=== PATIENT | female | born 1980 | race Two or more races ===

== ENCOUNTER 2018-08-22 16:42 | Emergency (ER) | payer OTHER ==
[2018-08-22] MEDS ORDERED: ACETAMINOPHEN 325 MG TABLET PO ONE (16:59)
[2018-08-22] MEDS ORDERED: KETOROLAC TROMETHAMINE 60 MG/2 ML SDV IM ONE (18:03)
--- NOTE | 2018-08-22 18:04 | ER Document Report ---
ED Medical Screen (RME) - General Chief Complaint: Flu Symptoms Stated Complaint: FLU LIKE SYMPTOMS Time Seen by Provider: 08/22/18 18:00 Primary Care Provider: EDDA SANTIAGO NP [Primary Care Provider] - Follow up as needed Notes: Chief complaint: Body aches and pain History of complain:( obtained from----patient) 38 years old female presents today with general body aches and pain feverish, fever, sore throat. Denies any nausea vomiting abdominal pain. Denies any cough shortness of breath. PHYSICAL EXAMINATION: GENERAL: Well-appearing, well-nourished and in mild to moderate acute distress. Morbid obesity HEAD: Atraumatic, normocephalic. EYES: Pupils equal round and reactive to light, extraocular movements intact, conjunctiva are normal. ENT: Nares patent, oropharynx erythema noted bilaterally no exudates. . Moist mucous membranes. NECK: Normal range of motion, supple without lymphadenopathy LUNGS: Breath sounds clear to auscultation bilaterally and equal. No wheezes rales or rhonchi. HEART: Regular rate and rhythm without murmurs ABDOMEN: Soft, nontender, nondistended abdomen. No guarding, no rebound. No masses appreciated. Examination of genitals-deferred Musculoskeletal: Normal range of motion, no pitting or edema. No cyanosis. NEUROLOGICAL: Cranial nerves grossly intact. Normal speech, normal gait. Normal sensory, motor exams PSYCH: Normal mood, normal affect. SKIN: Warm, Dry, normal turgor, no rashes or lesions noted. TRAVEL OUTSIDE OF THE [place] 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
[2018-08-22 19:59] LABS: A TYPE INFLUENZA AG NEGATIVE (NEGATIVE); B INFLUENZA AG NEGATIVE (NEGATIVE)
[2018-08-22] MEDS ORDERED: DEXAMETHASONE SOD PHOS INJ 10 MG/1 ML VIAL IM ONE (20:00)
[2018-08-22] MEDS ORDERED: PENICILLIN G BENZATHINE 1.2 MILLION UNIT/2 ML DISP.SYRIN IM ONE (20:04)
--- NOTE | 2018-08-22 20:08 | ER Document Report ---
ED Flu Like - General Chief Complaint: Flu Symptoms Stated Complaint: FLU LIKE SYMPTOMS Time Seen by Provider: 08/22/18 18:00 Primary Care Provider: EDDA SANTIAGO NP [ALLIED HEALTH PROFESSIONAL] - Follow up as needed Notes: Patient is a 38-year-old female that comes to the emergency department for chief complaint of 3 days of worsening throat pain, she states she started feeling fevers and chills, she states today she started to hurt over her entire body. She denies difficulty breathing, on my evaluation she does not have a headache, she states her main complaint now after medications in triage is just the sore throat. She has had the influenza vaccine. She is currently on her menstrual cycle. She denies any daily medications. TRAVEL OUTSIDE OF THE [place] IN LAST 30 DAYS: No - Related Data Allergies/Adverse Reactions: No Known Allergies Allergy (Unverified 08/22/18 16:43) Past Medical History - General Information source: Patient - Social History Smoking Status: Never Smoker Frequency of alcohol use: None Drug Abuse: None Lives with: Family Family History: Reviewed & Not Pertinent Patient has suicidal ideation: No Patient has homicidal ideation: No Renal/ Medical History: Denies: Hx Peritoneal Dialysis Skin Medical History: Comment Only Hx MRSA - MRSA 08/15 [facility] Psychiatric Medical History: Reports: Hx Anxiety Surgical Hx: Negative - Immunizations Immunizations up to date: Yes Hx Diphtheria, Pertussis, Tetanus Vaccination: Yes Review of Systems - Review of Systems Constitutional: See HPI EENT: See HPI Cardiovascular: No symptoms reported Respiratory: No symptoms reported Gastrointestinal: No symptoms reported Genitourinary: No symptoms reported Female Genitourinary: No symptoms reported Musculoskeletal: See HPI Skin: No symptoms reported Hematologic/Lymphatic: No symptoms reported Neurological/Psychological: See HPI Physical Exam - Vital signs Vitals: Temp Pulse Resp BP Pulse Ox 102.8 F H 133 H 22 H 153/103 H 98 08/22/18 16:46 08/22/18 16:46 08/22/18 16:46 08/22/18 16:46 08/22/18 16:46 - Notes Notes: GENERAL: Alert, nontoxic, anxious HEAD: Normocephalic, atraumatic. EYES: Pupils equal, round, and reactive to light. Extraocular movements intact. ENT: Oral mucosa moist, tongue midline. Erythematous with mild tonsillar hypertrophy, no obvious exudates, no uvular edema or shift, no evidence of peritonsillar abscess. Airway patent. Nares patent, no nasal septal hematoma, TM's intact. NECK: Full range of motion. Supple. Trachea midline. Mild bilateral anterior cervical adenopathy LUNGS: Clear to auscultation bilaterally, no wheezes, rales, or rhonchi. No respiratory distress. HEART: Tachycardic, normal rhythm, no murmur ABDOMEN: Soft, non-tender. Non-distended. Bowel sounds present in all 4 quadrants. GENITOURINARY: Deferred EXTREMITIES: Moves all 4 extremities spontaneously. No edema, normal radial and dorsalis pedis pulses bilaterally. No cyanosis. BACK: no cervical, thoracic, lumbar midline tenderness. No saddle anesthesia, normal distal neurovascular exam. NEUROLOGICAL: Alert and oriented x3. Normal speech. [cranial nerves II through XII grossly intact]. PSYCH: Anxious, talking rapidly SKIN: Flushed, diaphoretic Course - Re-evaluation Re-evalutation: Patient initially extremely anxious although she states she feels much better after she received Toradol in triage. She is diaphoretic and appears to have just broken a fever. She is borderline tachycardic on my exam. Unremarkable physical exam otherwise except examination suggestive of strep pharyngitis without abscess. Negative influenza, positive strep. This is consistent with patient's exam. I discussed options with patient. She requests penicillin G and dexamethasone, she states she hates taking pills. She was reassured and became much more calm afterwards. Discussed follow-up and return precautions in detail. Patient states satisfaction and agreement. Stable at time of discharge. - Vital Signs Vital signs: Temp Pulse Resp BP Pulse Ox 99.1 F 113 H 20 137/84 H 97 08/22/18 20:58 08/22/18 20:58 08/22/18 20:58 08/22/18 20:58 08/22/18 20:58 Discharge - Discharge Clinical Impression: Strep pharyngitis, Anterior cervical adenopathy Fever Qualifiers: Fever type: unspecified Qualified Code(s): R50.9 - Fever, unspecified Condition: Stable Disposition: HOME, SELF-CARE Additional Instructions: Your negative for influenza. Your workup indicates strep throat pharyngitis, you tested positive for this. You have been treated for this already, take ibuprofen or Tylenol for pain/f ever/chills/body aches. Drink plenty of fluids and rest. Your initially very contagious, avoid close contacts until fevers resolve and you improve. Follow-up with primary care. Return for any concerning or worsening symptoms including inability to swallow, difficulty breathing, or any other concerning or worsening symptoms. Referrals: EDDA SANTIAGO NP [ALLIED HEALTH PROFESSIONAL] - Follow up as needed
[2018-08-22 21:00] VITALS: BP 137/84
== END 2018-08-22 21:00 | disposition home or self-care (01) ==
LOC: ER 16:42
DX: J02.0 Streptococcal pharyngitis (principal); R59.9 Enlarged lymph nodes, unspecified; R07.0 Pain in throat; R51 Headache
CPT/HCPCS: 99283; 96372; 87880; 87804; J1885; J0561; J1100